=== PATIENT | female | born 1975 | race Caucasian/White ===

== ENCOUNTER 2021-11-24 17:14 | Emergency (ER) | payer BC, SELFPAY ==
[2021-11-24 17:20] VITALS: BP 134/76; PULSE 67; RESP 16; TEMP 35.9; O2SAT 100
--- NOTE | 2021-11-24 17:37 | ED.URI ---
HPI - URI/Sore Throat General Chief Complaint: Ear Stated Complaint: ear pressure Time Seen by Provider: 11/24/21 17:32 Source: patient, RN notes reviewed and old records reviewed Mode of arrival: ambulatory Limitations: no limitations History of Present Illness HPI Narrative: 46-year-old female who presents to [facility] with complaints of dry cough, some ear pressure bilaterally with some nasal congestion and drainage for the past past 3 weeks. Patient states she has taken some Claritin for her symptoms and also some Advil. Patient reports that symptoms started after flying back from business trip and she also went by car to [facility] with family.Patient reports that she has had no known fevers, some post nasal drainage present and drainage has increased, ears feel like they are draining down into her throat. Patient reports she will be flying out again on business trip on . MD elicited complaint: cough, rhinorrhea and other (Ear pressure) Onset (ago): week(s) (2) Pain scale (0-10): 4 Able to tolerate fluids by mouth: Yes Treatments prior to arrival: ibuprofen and other (Claritin) Related Data Home Medications Medication Instructions Recorded Confirmed multivitamin 1 tablet PO DAILY 11/24/21 11/24/21 Allergies Allergy/AdvReac Type Severity Reaction Status Date / Time No Known Allergies Allergy Verified 11/24/21 17:24 Review of Systems Review of Systems: CONSTITUTIONAL: Denies fever, chills, or sweats. EYES: Denies visual changes, redness, or discharge. ENT: Positive for rhinorrhea, congestion,no sore throat, bilateral otalgia. CARDIOVASCULAR: Denies chest pain, palpitations, or edema. RESPIRATORY: Positive for cough denies dyspnea. GASTROINTESTINAL: Denies abdominal pain, nausea, vomiting, or diarrhea. GENITOURINARY: Denies dysuria or hematuria. SKIN: Denies rash or itching. MUSCULOSKELETAL: Denies back pain, joint pain, or myalgia. NEUROLOGIC: Denies headache, numbness, or weakness. PSYCHIATRIC: Denies anxiety or depression. [facility] Past Medical History Medical History (Updated 11/25/21 @ 00:01 by Antonella Malagon) Acute back pain Feeling of chest tightness Surgical History Surgical History (Updated 11/24/21 @ 17:40 by Ninfa Turner NP) History of tonsillectomy Hx of breast reduction, elective Social History Social History Smoking status: Former smoker Smoking end date: 06/21/99 Alcohol intake: current Drinks per week: 10 Substance use: never Substance use type: does not use Gender identity (if verbalized by the patient): Female Comments At time of signature, agree with nursing past medical, surgical, social and family history. There is no relevant family history pertinent to the presenting complaint Exam Narrative: GENERAL: Well-appearing, well-nourished, and in no acute distress. HEAD: Normocephalic, atraumatic. EYES: PERRLA and EOMI. ENT: Nares red with clear rhinorrhea no epistaxis. Mucous membranes moist.TM's normal with dull light reflex, throat pink with no lesions or exudates,no tonsils present.post nasal drainage noted. NECK: Supple. no lymphadenopathy CHEST: Clear to auscultation. No respiratory distress.SAO2 100% on room air HEART: Regular rate and rhythm. No murmur heard. Normal peripheral pulses. ABDOMEN: Soft, nontender, nondistended, normal active bowel sounds. EXTREMITIES: Normal range of motion. No edema. SKIN: Warm, dry, no rash. NEURO: No focal deficits. Alert and oriented x3. Course Course Level of Care: Express Care Visit Vital Signs Vital signs: Vital Signs Temperature 35.9 C L 11/24/21 17:20 Pulse Rate 67 11/24/21 17:20 Respiratory Rate 16 11/24/21 17:20 Blood Pressure 134/76 11/24/21 17:20 Pulse Oximetry 100 11/24/21 17:20 Temperature 35.9 C L 11/24/21 17:20 Pulse Rate 67 11/24/21 17:20 Respiratory Rate 16 11/24/21 17:20 Blood Pressure 134/76
== END 2021-11-24 17:51 | disposition home or self-care (01) ==
PROVIDERS: Emergency Provider Registered Nurse; PCP Family Medicine
DX: J32.9 Chronic sinusitis, unspecified (principal); H93.8X3 Other specified disorders of ear, bilateral; Z87.891 Personal history of nicotine dependence
CPT/HCPCS: 99213; G0463

== ENCOUNTER 2022-02-25 09:15 | Outpatient (CLI) | payer BC, SELFPAY ==
--- NOTE | ~2022-02-25 | MR_ITS ---
EXAMINATION: MR brain IAC wo/w con DATE: 02/25/2022 10:34 INDICATION: Idiopathic right ear pain. TECHNIQUE: Magnetic resonance imaging (MRI) of the brain, brainstem, and internal auditory canals was performed without and with 15 mL MultiHance intravenous contrast. COMPARISON: Sinuses CT 02/25/2022 FINDINGS: There is no intracranial hemorrhage, acute infarction, or abnormal intracranial mass lesion . The ventricles are normal in size. The orbits are normal. The paranasal sinuses are clear. The inte rnal auditory canals and inner and middle ears are normal. The mastoid air cells are normal. IMPRESSION: 1. Normal brain. Reviewed, dictated and finalized at location A. IMPRESSION: 1. Normal brain.
--- NOTE | ~2022-02-25 | CT_ITS ---
EXAMINATION: CT sinus wo con DATE: 02/25/2022 09:37 INDICATION: Chronic sinusitis TECHNIQUE: Computed tomography (CT) of the paranasal sinuses was performed without intravenous contra st. The dose-length product (DLP) was 301.30 mGy-cm. Iterative reconstruction was used. COMPARISON: None FINDINGS: The frontal sinuses are hypoplastic. There is otherwise normal development and pneumatizati on of the paranasal sinuses. The sphenoid, ethmoid, and maxillary sinuses are clear. The bilateral os tiomeatal complexes are patent. Visualized soft tissues are unremarkable. IMPRESSION: 1. Unremarkable sinus CT. Reviewed, dictated and finalized at location B. IMPRESSION: 1. Unremarkable sinus CT.
== END 2022-02-25 09:16 | disposition home or self-care (01) ==
PROVIDERS: PCP Family Medicine; Visit Provider Otolaryngology
DX: H92.09 Otalgia, unspecified ear (principal)
CPT/HCPCS: 70486; 70553; A9577

== ENCOUNTER 2022-06-08 03:15 | Day surgery (SDC) | payer BC, SELFPAY ==
[2022-05-28 12:21] VITALS: BMI 25.2
--- NOTE | 2022-06-05 20:55 | PM.HPGS ---
History of Present Illness History of Present Illness Consent: Risks, benefits, and alternatives have been discussed and questions answered. Patient agrees to proceed with procedure. Chief complaint: neoplasm screenig Narrative: April Hallman is a 47 year old female referred for colon cancer screening. Review of Systems Review of Systems: All systems reviewed & are unremarkable except as noted in HPI and below PMFSH Past Medical History Medical History Acute back pain Feeling of chest tightness Surgical History Surgical History History of tonsillectomy Hx of breast reduction, elective Social History Social History Social History: Smoking status: Former smoker Tobacco type: cigarettes Second hand tobacco smoke exposure: No Smoking end date: 06/21/99 Alcohol intake: current Drinks per week: 14 Substance use: never Substance use type: does not use Living arrangements: with family Gender identity (if verbalized by the patient): Female Sexual Orientation (if Verbalized by the Patient): Straight or Heterosexual Spiritual care concerns: No Meds Home Medications and Allergies Home Medications Medication Instructions Recorded Confirmed Type multivitamin 1 tablet PO DAILY 11/24/21 06/08/22 History tranexamic acid 650 mg tablet 1,300 mg PO TID 05/28/22 06/08/22 History amoxicillin 875 mg-potassium 1 tablet PO Q12H 06/05/22 06/08/22 History clavulanate 125 mg tablet clonazepam 1 mg tablet 1 mg PO HS 06/05/22 06/08/22 History methylprednisolone 4 mg tablets in 4 mg PO DIRECTED 06/05/22 06/08/22 History a dose pack ondansetron HCl 4 mg tablet 4 mg PO Q4-6H PRN Nausea 06/05/22 06/08/22 History Allergies Allergy/AdvReac Type Severity Reaction Status Date / Time No Known Allergies Allergy Verified 06/08/22 08:17 Exam Const: General: alert Orientation/consciousness: patient oriented x3 Resp: Auscultation: clear to auscultation bilaterally Cardio: Rhythm: regular rhythm GI: GI Palp: Yes Soft to palpation and No Tenderness to palpation present (GI) Neuro: General: patient oriented x3 Assessment and Plan Assessment and plan (1) Colon cancer screening: Code(s): Z12.11 - Encounter for screening for malignant neoplasm of colon Status: Acute Assessment and Plan: Colonoscopy with possible biopsy or polypectomy or cautery or injection of substances.
--- NOTE | 2022-06-07 09:29 | P.PNAN_ITS ---
Anes - Initial Pre Proc Eval Procedure: Operation Date: 06/08/22 09:30 Proposed Procedures p Screening Colonoscopy - Zain Bazzi MD Date/Time: 06/07/22 09:29 Surgeon: Zain Bazzi MD Pre Op Diagnosis: neoplasm screenig Patient Data Age: 47 Gender: F Height: 1.7 m Weight: 73 kg Allergies Allergy/AdvReac Type Severity Reaction Status Date / Time No Known Allergies Allergy Verified 05/28/22 12:22 Home Medications Medication Instructions Recorded Confirmed Type multivitamin 1 tablet PO DAILY 11/24/21 05/28/22 History tranexamic acid 650 mg tablet 1,300 mg PO TID 05/28/22 05/28/22 History amoxicillin 875 mg-potassium 1 tablet PO Q12H 06/05/22 06/05/22 History clavulanate 125 mg tablet clonazepam 1 mg tablet 1 mg PO HS 06/05/22 06/05/22 History methylprednisolone 4 mg tablets in 4 mg PO DIRECTED 06/05/22 06/05/22 History a dose pack ondansetron HCl 4 mg tablet 4 mg PO Q4-6H PRN Nausea 06/05/22 06/05/22 History Patient hx anesthesia problems: none Family hx anesthesia problems: none Results Review: All pre-operative results and documents have been reviewed as part of the pre- operative evaluation. [facility] Past Medical History Medical History Acute back pain Feeling of chest tightness Surgical History Surgical History History of tonsillectomy Hx of breast reduction, elective Social History Social History (Updated 05/20/22 @ 13:22 by Anju Stubbs) Social History: Smoking status: Former smoker Tobacco type: cigarettes Second hand tobacco smoke exposure: No Smoking end date: 06/21/99 Alcohol intake: current Drinks per week: 14 Substance use: never Substance use type: does not use Living arrangements: with family Gender identity (if verbalized by the patient): Female Sexual Orientation (if Verbalized by the Patient): Straight or Heterosexual Spiritual care concerns: No Anes - Eval Final PreProcedure Day of Procedure 06/07/22 09:29 Patient weight: normal Heart: regular rate and rhythm Lungs: clear to auscultation and normal air movement Airway: Mallampati scale class II Neurological: alert and oriented Last oral intake: >/= 8 hours ASA classification: I Emergent: no Anesthetic plan: proceed Anesthesia type and monitoring: general GIVS Results Review: All pre-operative results and documents have been reviewed as part of the pre- operative evaluation. Informed Consent: The patient's anesthetic plan and its attendant risks and benefits were discussed with the patient/family/POA. Questions were solicited and answers provided to the satisfaction of the patient/family/POA.
[2022-06-08 08:22] VITALS: BP 130/85; PULSE 81; RESP 16; TEMP 36.7; O2SAT 100
[2022-06-08] MEDS: LACTATED RINGERS 1,000 ML 150 ML IV CONT (08:34)
--- NOTE | 2022-06-08 09:18 | PM.HPGS ---
History of Present Illness History of Present Illness Consent: Risks, benefits, and alternatives have been discussed and questions answered. Patient agrees to proceed with procedure. Chief complaint: neoplasm screenig Narrative: April Hallman is a 47 year old female Was referred for colon cancer screening. Review of Systems Review of Systems: All systems reviewed & are unremarkable except as noted in HPI and below PMFSH Past Medical History Medical History Acute back pain Feeling of chest tightness Surgical History Surgical History History of tonsillectomy Hx of breast reduction, elective Social History Social History Social History: Smoking status: Former smoker Tobacco type: cigarettes Second hand tobacco smoke exposure: No Smoking end date: 06/21/99 Alcohol intake: current Drinks per week: 14 Substance use: never Substance use type: does not use Living arrangements: with family Gender identity (if verbalized by the patient): Female Sexual Orientation (if Verbalized by the Patient): Straight or Heterosexual Spiritual care concerns: No Meds Home Medications and Allergies Home Medications Medication Instructions Recorded Confirmed Type multivitamin 1 tablet PO DAILY 11/24/21 06/08/22 History tranexamic acid 650 mg tablet 1,300 mg PO TID 05/28/22 06/08/22 History amoxicillin 875 mg-potassium 1 tablet PO Q12H 06/05/22 06/08/22 History clavulanate 125 mg tablet clonazepam 1 mg tablet 1 mg PO HS 06/05/22 06/08/22 History methylprednisolone 4 mg tablets in 4 mg PO DIRECTED 06/05/22 06/08/22 History a dose pack ondansetron HCl 4 mg tablet 4 mg PO Q4-6H PRN Nausea 06/05/22 06/08/22 History Allergies Allergy/AdvReac Type Severity Reaction Status Date / Time No Known Allergies Allergy Verified 06/08/22 08:17 Vital Signs Vital Signs - 24 hr 06/08/22 08:22 Temperature 36.7 C Pulse Rate 81 Respiratory Rate 16 Blood Pressure 130/85 Pulse Oximetry 100 Oxygen Delivery Room Air Exam Const: General: alert Orientation/consciousness: patient oriented x3 Resp: Auscultation: clear to auscultation bilaterally Cardio: Rhythm: regular rhythm GI: GI Palp: Yes Soft to palpation and No Tenderness to palpation present (GI) Neuro: General: patient oriented x3 Assessment and Plan Assessment and plan (1) Colon cancer screening: Code(s): Z12.11 - Encounter for screening for malignant neoplasm of colon Status: Acute Assessment and Plan: Colonoscopy with possible biopsy or polypectomy or cautery or injection of substances.
[2022-06-08 09:56] VITALS: BP 122/82; PULSE 86; RESP 16; O2SAT 100
[2022-06-08 10:06] VITALS: BP 122/86; PULSE 77; RESP 16; O2SAT 100
== END 2022-06-08 10:25 | disposition home or self-care (01) ==
PROVIDERS: PCP Family Medicine; Visit Provider Internal Medicine Gastroenterology
PROC: 0DJD8ZZ Inspection of Lower Intestinal Tract, Via Natural or Artificial Opening Endoscopic (ICD-10-PCS; CPT 45378; principal; 2022-06-08 09:30)
DX: Z12.11 Encounter for screening for malignant neoplasm of colon (principal); Z87.891 Personal history of nicotine dependence
CPT/HCPCS: 45378; J2001; J2704; J7120